=== PATIENT | female | born 1940 | race Caucasian/White ===

== ENCOUNTER 2018-03-22 21:44 | Emergency (ER) | payer MEDICARE ==
[~2018-03-22] VITALS: Ht 172.7 cm; Wt 84.5 kg
[~2018-03-22 21:44] MED LIST: ASPI-482 PO; NEBI10TA3 PO; RAMI5CAP50 PO; SIMV20TA3 PO
--- NOTE | 2018-03-22 21:56 | ED.ADGEN ---
Past History Past Medical History: COPD, CVA, High Cholesterol, Hypertension, UTI Past Surgical History: No Surgical History Smoking: Greater than 1 pack/day Alcohol Use: None Drug Use: None Adult General Chief Complaint Chief Complaint ".. I ve tashia been feeling like crap all day.. I did take my BP meds .. about noon... and don't take the regular times.. but I checked my BP before going to bed...and it was up..." HPI HPI Patient is a 77 year old female who presents with above hx and complaints malaise and accelerated hypertension. Patient has long history of hypertension. Give an intermittent history of med compliance and follow-up with Dr. Pillai. Patient has had a previous CVA because of hypertension 7 - 10 yrs ago with no sequela . Patient gives no history of NC. Patient does smoke approximately 1 pack cigarettes a day. Denies any intake bad food. Denies any ill contacts. Patient denies immunosuppression or recent travel. No history of trauma given. No current headache or limb weakness. Review of Systems Review of Systems Constitutional: Denies fever or chills []complaints of malaise Eyes: Denies change in visual acuity, redness, or eye pain [] HENT: Denies nasal congestion or sore throat [] Respiratory: Denies cough or shortness of breath [] Cardiovascular: No additional information not addressed in HPI [] GI: Denies abdominal pain, nausea, vomiting, bloody stools or diarrhea [] : Denies dysuria or hematuria [] Musculoskeletal: Denies back pain or joint pain [] Integument: Denies rash or skin lesions [] Neurologic: Denies headache, focal weakness or sensory changes [] Endocrine: Denies polyuria or polydipsia [] All other systems were reviewed and found to be within normal limits, except as documented in this note. Family History Family History Noncontributory Current Medications Current Medications Current Medications Medications (Trade) Dose Ordered Sig/Georgi Start Time Stop Time Status Last Admin Dose Admin Aspirin (Children'S Aspirin) 324 mg 1X ONCE 03/22/18 22:15 03/22/18 22:39 DC 03/22/18 22:17 324 MG Clonidine HCl (Catapres Tts-2) 1 patch STK-MED ONCE 03/22/18 22:06 03/22/18 22:07 DC Clonidine HCl (Catapres) 0.2 mg 1X ONCE 03/22/18 22:15 03/22/18 22:39 DC 03/22/18 22:18 0.2 MG Info (Do NOT chart on this entry -- for MONITORING) 1 each PRN DAILY PRN 03/22/18 23:15 03/23/18 00:47 DC Iohexol (Omnipaque 300 Mg/ml) 75 ml 1X ONCE 03/22/18 23:15 03/22/18 23:17 DC 03/22/18 23:19 75 ML Lactated Ringer's 1,000 ml @ 100 mls/hr Q10H 03/22/18 22:01 03/23/18 00:47 DC 03/22/18 22:14 100 MLS/HR Ondansetron HCl (Zofran) 8 mg 1X ONCE 03/22/18 22:15 03/22/18 22:39 DC 03/22/18 22:17 8 MG Trimethoprim/ Sulfamethoxazole (Bactrim Ds) 1 tab 1X ONCE 03/23/18 00:15 03/23/18 00:16 DC 03/23/18 00:38 1 TAB See nursing for home meds Allergies Allergies Allergies Coded Allergies Type Severity Reaction Last Updated Verified No Known Drug Allergies 07/04/13 No Physical Exam Physical Exam Constitutional: Moderate distress, non-toxic appearance. [] HENT: Normocephalic, atraumatic, bilateral external ears normal, oropharynx moist, no oral exudates, nose normal. [] Eyes: PERRLA, EOMI, conjunctiva normal, no discharge. [] Neck: Normal range of motion, no tenderness, supple, no stridor. [] No neck bruits appreciated Cardiovascular:Heart rate regular rhythm, no murmur []PMI to the left Lungs & Thorax: Bilateral breath sounds equal at apexes with scattered wheezes on auscultation[] Abdomen: Bowel sounds normal, soft, no tenderness, no masses, no pulsatile masses. [] Skin: Warm, dry, no erythema, no rash. [] Back: No tenderness, no CVA tenderness. [] Extremities: No tenderness, no cyanosis, no clubbing, ROM intact, no edema. Mild arthritic changes. No cording noted. Neurologic: Alert and oriented X 3, normal motor function, normal sensory function, no focal deficits noted. [] Psychologic: Affect anxious, judgement normal, mood normal. [] Current Patient Data Vital Signs Vital Signs Date Time Temp Pulse Resp B/P (MAP) Pulse Ox O2 Delivery O2 Flow Rate FiO2 03/22/18 22:46 62 146/76 (99) 03/22/18 22:32 18 98 Room Air 03/22/18 21:56 98.1 Lab Results Laboratory Tests Test 03/22/18 22:10 03/22/18 23:17 White Blood Count 9.1 x10^3/uL (4.0-11.0) Red Blood Count 4.42 x10^6/uL (3.50-5.40) Hemoglobin 13.8 g/dL (12.0-15.5) Hematocrit 40.6 % (36.0-47.0) Mean Corpuscular Volume 92 fL (79-100) Mean Corpuscular Hemoglobin 31 pg (25-35) Mean Corpuscular Hemoglobin Concent 34 g/dL (31-37) Red Cell Distribution Width 13.8 % (11.5-14.5) Platelet Count 243 x10^3/uL (140-400) Neutrophils (%) (Auto) 57 % (31-73) Lymphocytes (%) (Auto) 30 % (24-48) Monocytes (%) (Auto) 8 % (0-9) Eosinophils (%) (Auto) 5 % (0-3) H Basophils (%) (Auto) 1 % (0-3) Neutrophils # (Auto) 5.2 x10^3uL (1.8-7.7) Lymphocytes # (Auto) 2.8 x10^3/uL (1.0-4.8) Monocytes # (Auto) 0.7 x10^3/uL (0.0-1.1) Eosinophils # (Auto) 0.4 x10^3/uL (0.0-0.7) Basophils # (Auto) 0.1 x10^3/uL (0.0-0.2) Prothrombin Time 9.7 SEC (9.4-11.4) Prothrombin Time INR 1.0 (0.9-1.1) PTT 24 SEC (23-33) D-Dimer (Yanira) 0.71 mg/L (0.00-0.50) H Sodium Level 143 mmol/L (136-145) Potassium Level 3.6 mmol/L (3.5-5.1) Chloride Level 107 mmol/L (98-107) Carbon Dioxide Level 29 mmol/L (21-32) Anion Gap 7 (6-14) Blood Urea Nitrogen 19 mg/dL (7-20) Creatinine 1.0 mg/dL (0.6-1.0) Estimated GFR (Cockcroft-Gault) 54.1 Glucose Level 102 mg/dL (70-99) H Calcium Level 9.0 mg/dL (8.5-10.1) Magnesium Level 1.9 mg/dL (1.8-2.4) Total Bilirubin 0.3 mg/dL (0.2-1.0) Direct Bilirubin 0.1 mg/dL (0.0-0.2) Aspartate Amino Transferase (AST) 23 U/L (15-37) Alanine Aminotransferase (ALT) 50 U/L (14-59) Alkaline Phosphatase 113 U/L (46-116) Creatine Kinase 137 U/L (26-192) Troponin I Quantitative < 0.017 ng/mL (0-0.055) MR-Gee-V-Type Natriuretic Peptide 269 pg/mL (0-449) Total Protein 7.0 g/dL (6.4-8.2) Albumin 3.5 g/dL (3.4-5.0) Lipase 197 U/L (73-393) Urine Collection Type Unknown Urine Color Yellow Urine Clarity Clear Urine pH 6.0 Urine Specific [place] 1.010 Urine Protein Neg (NEG-TRACE) Urine Glucose (UA) Neg mg/dL (NEG) Urine Ketones (Stick) Neg mg/dL (NEG) Urine Blood Small (NEG) Urine Nitrite Neg (NEG) Urine Bilirubin Neg (NEG) Urine Urobilinogen Dipstick 0.2 mg/dL (0.2 mg/dL) Urine Leukocyte Esterase Small (NEG) Urine RBC 1-2 /HPF (0-2) Urine WBC 1-4 /HPF (0-4) Urine Squamous Epithelial Cells Few /LPF Urine Bacteria 0 /HPF (0-FEW) Urine Opiates Screen Neg (NEG) Urine Methadone Screen Neg (NEG) Urine Barbiturates Neg (NEG) Urine Phencyclidine Screen Neg (NEG) Urine Amphetamine/Methamphetamine Neg (NEG) Urine Benzodiazepines Screen Neg (NEG) Urine Cocaine Screen Neg (NEG) Urine Cannabinoids Screen Neg (NEG) Urine Ethyl Alcohol Neg (NEG) EKG EKG My interpretation of EKG shows a sinus rhythm at 67 bpm. Left axis. No acute morphology consistent with STEMI/contralateral changes[] Radiology/Procedures Radiology/Procedures My interpretation chest x-ray shows some hyperexpansion of chronic COPD changes. Some flattening of diaphragm. Mild elevation left diaphragmatic howard phrenic angle. Pleural scarring. CT of chest shows no obvious pulmonary embolism. Does have findings of COPD and atelectasis. Bi- apical pleural scarring See formal report when available. Patient does have calcification of coronary arteries and aortic knob. Course & Med Decision Making Course & Med Decision Making Pertinent Labs and Imaging studies reviewed. (See chart for details). Patient declined further work up at this time or admission. Requesting discharge home. Patient reports all symptoms have resolved. Push vitamin C drinks. Take Bactrim DS twice a day for 7 days. Repeat urine test to follow-up with primary care. Keep a record of your blood pressures in a notebook. Documented 4 times a day. Show this note posterior physician and discuss her current hyper intensive med plan. Take meds please directed. Take meds had a scheduled time. Patient encouraged to stop smoking. Patient to follow-up primary care. Review all labs and x-rays. If persistent problems with hypertension consider application of a clonidine patch 0.2 mg weekly. Return if any concerns. [] Final Impression Final Impression 1. Accelerated hypertension 109's/140's 2. Malaise[] 3. Tobacco use approximately [id number] 4. Elevation D- dimer 5. Urinary tract infection Dragon Disclaimer Dragon Disclaimer This electronic medical record was generated, in whole or in part, using a voice recognition dictation system. DONG JUNG MD Mar 22, 2018 21:56
[2018-03-22] MEDS ORDERED: IV RINGERS SOLUTION,LACTATED 1,000 ML IV SCH (22:01)
[2018-03-22] MEDS ORDERED: cloNIDine TTS-2 1 PATCH PATCH TD ONE ×2 (22:06→22:15)
[2018-03-22] MEDS ORDERED: ASPIRIN 81 MG TAB.CHEW PO ONE (22:15)
[2018-03-22] MEDS ORDERED: ONDANSETRON PF 4 MG/2 ML VIAL. IV ONE (22:15)
[2018-03-22] MEDS ORDERED: cloNIDine HCL 0.1 MG TABLET PO ONE (22:15)
[2018-03-22 22:27] LABS: BASO # 0.1 x10^3/uL (0.0-0.2); BASO % 1 % (0-3); EOS # 0.4 x10^3/uL (0.0-0.7); EOS % 5 % (0-3); HEMATOCRIT 40.6 % (36.0-47.0); HEMOGLOBIN 13.8 g/dL (12.0-15.5); LYMPH # 2.8 x10^3/uL (1.0-4.8); LYMPH % 30 % (24-48); MEAN CORPUSCULAR HEMOGLOBIN 31 pg (25-35); MEAN CORPUSCULAR HGB CONC 34 g/dL (31-37); MEAN CORPUSCULAR VOLUME 92 fL (79-100); MONO # 0.7 x10^3/uL (0.0-1.1); MONO % 8 % (0-9); NEUT # 5.2 x10^3uL (1.8-7.7); NEUT % 57 % (31-73); PLATELET COUNT 243 x10^3/uL (140-400); RED BLOOD COUNT 4.42 x10^6/uL (3.50-5.40); RED CELL DISTRIBUTION WIDTH 13.8 % (11.5-14.5); WHITE BLOOD COUNT 9.1 x10^3/uL (4.0-11.0)
[2018-03-22 22:45] LABS: ALBUMIN 3.5 g/dL (3.4-5.0); DIRECT BILIRUBIN 0.1 mg/dL (0.0-0.2); GFR 54.1; MAGNESIUM 1.9 mg/dL (1.8-2.4); POTASSIUM 3.6 mmol/L (3.5-5.1); TOTAL BILIRUBIN 0.3 mg/dL (0.2-1.0)
[2018-03-22] MEDS ORDERED: CONTRAST GIVEN MC PRN (23:15)
[2018-03-22] MEDS ORDERED: IOHEXOL 300 MG/ML 75 ML VIAL. IV ONE (23:15)
[2018-03-22 23:40] LABS: BARBITURATES NEG (NEG); BENZODIAZEPINES NEG (NEG); CANNABINOIDS NEG (NEG); COCAINE NEG (NEG); METHADONE NEG (NEG); OPIATES NEG (NEG); PHENCYCLIDINE NEG (NEG)
[2018-03-22 23:43] LABS: BILIRUBIN,URINE NEG (NEG); CLARITY,URINE CLEAR; COLOR,URINE YELLOW; GLUCOSE,URINE NEG (NEG); NITRITE,URINE NEG (NEG); UROBILINOGEN,URINE 0.2 mg/dL (0.2 mg/dL)
[2018-03-22 23:44] LABS: BACTERIA,URINE 0 /HPF (0-FEW); SQUAMOUS EPITHELIAL CELL,UR FEW /LPF
[2018-03-22 23:46] LABS: AMPHETAMINE/METHAMPHETAMINE NEG (NEG)
--- NOTE | 2018-03-22 23:51 | RAD ---
Exam performed: CT pulmonary angiogram of the chest with contrast. Date: 03/22/2018. Comparison: Two-view chest from 07/04/2013 Indication: Elevated blood pressure, chest pain and elevated d-dimer Technique: Contiguous helical acquisitions are obtained through the chest during intravenous administration of [ 75 ] cc of [ Omnipaque 300 ] . [Sagittal and coronal ] MIP images were obtained and reviewed Findings: The structures at the thoracic inlet including both lobes of the thyroid gland appear normal. Pulmonary arterial opacification is adequate to evaluate for pulmonary embolus. There is no evidence for pulmonary embolism. Diffuse atheromatous calcification of the aortic knob and coronary arteries is seen. The heart is normal in size. No pericardial effusion is seen. No mediastinal or hilar lymphadenopathy is seen. Central airway is patent without lesions. Biapical pleural parenchymal scarring is noted. Mild emphysematous changes are seen. Linear opacity right lung base likely atelectasis. Upper abdominal structures appear unremarkable. Osseous structures appear intact. Impression: 1. Study is negative for pulmonary embolism. 2. Biapical pleural parenchymal scarring with right basilar atelectasis. 3. Diffuse atheromatous aortic and coronary calcification. PQRS Compliance Statement: One or more of the following individualized dose reduction techniques were utilized for this examination: 1. Automated exposure control 2. Adjustment of the mA and/or kV according to patient size 3. Use of iterative reconstruction technique End impression Exam performed: 2 views of the chest. Indication: Elevated blood pressure, chest pain, elevated d-dimer, COPD Date of Service: 03/22/2018 10:34 PM . Comparison : None available. Findings: PA and lateral radiographs of the chest reveal a normal cardiomediastinal contour. The lungs are clear. No pleural fluid is seen. The visualized osseous structures are unremarkable. Impression: No acute cardiopulmonary process seen. Electronically signed by: Davina Roger MD (03/22/2018 11:47 PM) [facility]
[2018-03-23] MEDS ORDERED: SMZ/TMP 800/160MG TABLET. PO ONE (00:15)
[2018-03-23] MEDS ORDERED: SULF1TAB24 PO (00:22)
[2018-03-23] MEDS ORDERED: CLON-276 PO (00:22)
[2018-03-23 00:30] VITALS: BP 141/51
--- NOTE | 2018-03-23 03:52 | EKG ---
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 Electronically Signed On 03-23-2018 15:28:51 CDT by Hussein Cherry
[2018-03-24 12:56] LABS: THYROID STIM HORMONE (TSH) 2.902 uIU/mL (0.358-3.740)
== END 2018-03-23 00:47 | disposition home or self-care (01) ==
LOC: ER 21:44
DX: I10 Essential (primary) hypertension (principal); R53.81 Other malaise; R79.1 Abnormal coagulation profile; N39.0 Urinary tract infection, site not specified; J44.9 Chronic obstructive pulmonary disease, unspecified; E78.00 Pure hypercholesterolemia, unspecified; Z87.440 Personal history of urinary (tract) infections; Z87.891 Personal history of nicotine dependence
CPT/HCPCS: 36415; 71046; 71275; 80048; 80061; 80076; 80307; 81001; 82550; 83690; 83735; 83880; 84443; 84484; 85025; 85379; 85610; 85730; 87086; 93005; 96374; 99285; J2405; J7120; Q9967; G0479